=== PATIENT | male | born 2000 | race Caucasian/White ===

== ENCOUNTER 2020-11-20 22:36 | Emergency (ER) | payer MEDICAID, OTHER ==
[~2020-11-20] VITALS: Ht 175.3 cm; Wt 95.3 kg
[2020-11-20 22:42] VITALS: BP 135/90
--- NOTE | 2020-11-20 22:42 | NUR ---
TO BED AMBULATORY
--- NOTE | 2020-11-20 23:00 | NUR ---
PT AMBULATED TO BED FROM TRIAGE WITH COMPLAINTS OF RLQ OF ABDOMINAL PAIN SINCE THIS AM. DENIES PAIN RADIATING. STATES LAST BM THIS AM AND WNL. DENIES URINARY COMPLAINTS. A&O X4, RESPIRATIONS EVEN AND UNLABORED. S1S2 NOTED. ABD SOFT. SKIN WARM AND DRY. SAFETY MEASURES IN PLACE. WILL CONT TO MONITOR.
--- NOTE | 2020-11-20 23:05 | NUR ---
ELIZABETH PRASAD AT BEDSIDE FOR EVALUATION.
[2020-11-20] MEDS ORDERED: KETOROLAC 60 MG/2 ML VIAL IM ONE (23:10)
[2020-11-20] MEDS ORDERED: ALUMINUM HYD/MAG/SIMETHICONE 30 ML, DICYCLOMINE HCL LIQUID 20 MG, LIDOCAINE VISCOUS 2% ... PO ONE ×3 (23:10)
[2020-11-20] MEDS ORDERED: LIDOCAINE VISCOUS 2% 20 ML UDC ONE (23:33)
[2020-11-20 23:34] LABS: BASOPHILS # (AUTO) 0.1 K/uL (0.00-0.22); BASOPHILS % (AUTO) 0.6 % (0.0-2.0); EOSINOPHILS # (AUTO) 0.1 K/uL (0-0.4); EOSINOPHILS % (AUTO) 1.2 % (0.0-4.0); HEMATOCRIT 43.4 % (36-52); HEMOGLOBIN 14.9 g/dL (12.0-18.0); LYMPHOCYTES # (AUTO) 4.1 K/uL (2.0-11.5); MEAN CORPUSCULAR HEMOGLOBIN 30 pg (27-31); MEAN CORPUSCULAR HGB CONC 34 g/dL (33-37); MEAN CORPUSCULAR VOLUME 88.7 fL (80-94); MONOCYTES # (AUTO) 0.6 K/uL (0.8-1.0); MONOCYTES % (AUTO) 5.9 % (1.7-9.3); NEUTROPHILS # (AUTO) 5.4 K/uL (1.8-7.7); NEUTROPHILS % (AUTO) 52.3 % (42.2-75.2); PLATELET COUNT (AUTO) 205 K/uL (140-450); RED BLOOD CELL COUNT(AUTO) 4.89 MIL/uL (4.20-6.10); RED CELL DISTRIBUTION WIDTH 13.4 % (11.6-13.7); WHITE BLOOD COUNT (AUTO) 10.2 K/uL (4.5-11.0)
[2020-11-20] MEDS ORDERED: ALUMINUM HYD/MAG/SIMETHICONE 30 ML UDC ONE (23:34)
[2020-11-20] MEDS ORDERED: DICYCLOMINE HCL LIQUID 10 MG/5 ML UDC ONE (23:34)
[2020-11-20 23:52] LABS: ALBUMIN 4.4 g/dL (3.4-5.0); ANION GAP 16.4 (8-16); CARBON DIOXIDE 25.5 mmol/L (21-32); POTASSIUM 3.9 mmol/L (3.5-5.1); TOTAL BILIRUBIN 0.5 mg/dL (0.0-1.0)
--- NOTE | 2020-11-20 23:54 | NUR ---
PERIPHERAL IV ESTABLISHED RT AC 18g Addendum: 11/20/20 at 2355 by [email or web address] WRONG TIME. TIME WAS 2315
--- NOTE | 2020-11-21 00:17 | NUR ---
TO CT VIA W/C
--- NOTE | 2020-11-21 01:29 | NUR ---
Patient discharged with v/s stable. Written and verbal after care instructions given and explained. Patient alert, oriented and verbalized understanding of instructions. Ambulatory with steady gait. All questions addressed prior to discharge. ID band removed. Patient advised to follow up with PMD. Rx of PEPCID AND MOTRIN given. Patient educated on indication of medication including possible reaction and side effects. Opportunity to ask questions provided and answered.
== END 2020-11-21 01:29 | disposition home or self-care (01) ==
LOC: MED 22:36
DX: K29.70 Gastritis, unspecified, without bleeding (principal); Z91.013 Allergy to seafood
CPT/HCPCS: 36415; 74176; 80053; 81002; 83690; 85025; 96372; 99284; J1885

== ENCOUNTER 2022-03-03 18:43 | Emergency (ER) | payer MEDICAID ==
[~2022-03-03] VITALS: Ht 175.3 cm; Wt 99.8 kg
[2022-03-03 18:51] VITALS: BP 163/103
--- NOTE | 2022-03-03 18:56 | NUR ---
PT AMB TO BED 3.
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
--- NOTE | 2022-03-03 19:21 | NUR ---
GAVE REPORT TO ALLEN CONNORS. TRANSFER OF CARE AT THIS TIME.
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
[2022-03-03] MEDS ORDERED: LORazepam 1 MG TAB PO ONE (19:45)
--- NOTE | 2022-03-03 20:20 | NUR ---
medicated as per ermds order,tolerate well.
[2022-03-03] MEDS ORDERED: LORA-476 PO (21:41)
[2022-03-03 22:35] VITALS: BP 163/103
[2022-03-04] MEDS ORDERED: LORA-476 PO (10:05)
== END 2022-03-03 22:35 | disposition home or self-care (01) ==
LOC: MED 18:43
DX: F43.9 Reaction to severe stress, unspecified (principal); R09.89 Other specified symptoms and signs involving the circulatory and respiratory systems; Z79.899 Other long term (current) drug therapy; Z91.013 Allergy to seafood
CPT/HCPCS: 71045; 93005; 99283

== ENCOUNTER 2022-03-07 15:44 | Emergency (ER) | payer MEDICAID ==
[~2022-03-07] VITALS: Ht 175.3 cm; Wt 99.8 kg
[~2022-03-07 15:44] MED LIST: LORA-476 PO
[2022-03-07 16:16] VITALS: BP 140/94
[2022-03-07] MEDS ORDERED: PRED20TA5 PO (17:29)
--- NOTE | 2022-03-07 17:30 | NUR ---
NO NURSING INTERVENTIONS GIVEN, NO NEED FOR COMPLETE
[2022-03-07 17:36] VITALS: BP 140/94
== END 2022-03-07 17:35 | disposition home or self-care (01) ==
LOC: MED 15:44
DX: R07.0 Pain in throat (principal); Z91.013 Allergy to seafood
CPT/HCPCS: 70360; 99283